=== PATIENT | male | born 1985 | race Caucasian/White ===

== ENCOUNTER 2017-06-21 20:18 | Emergency (ER) | payer BC ==
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
--- NOTE | 2017-06-22 08:22 | Diagnostic Imaging Report ---
Exam: Cervical spine HISTORY: Trauma Findings: Multiple views of cervical spine reviewed. The study demonstrates vertebral bodies of normal height with preserved intervertebral disc spaces. The odontoid process is poorly seen. The posterior elements are intact. IMPRESSION: Normal examination cervical spine.
== END 2017-06-21 21:59 | disposition home or self-care (01) ==
LOC: EDSEX 20:18 → ER 20:18
DX: M50.30 Other cervical disc degeneration, unspecified cervical region (principal)
CPT/HCPCS: 72050-TC; Z7502

== ENCOUNTER 2018-02-11 19:27 | Emergency (ER) | payer BC ==
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
== END 2018-02-11 22:15 | disposition home or self-care (01) ==
LOC: ER 19:27
DX: S16.1XXA Strain of muscle, fascia and tendon at neck level, initial encounter (principal); S29.9XXA Unspecified injury of thorax, initial encounter; V89.2XXA Person injured in unspecified motor-vehicle accident, traffic, initial encounter; Y93.89 Activity, other specified; Y92.488 Other paved roadways as the place of occurrence of the external cause; Y99.8 Other external cause status
CPT/HCPCS: 70450-TC; 71250-TC; 72125-TC; 93005; Z7502